=== PATIENT | male | born 1975 | race Caucasian/White ===

== ENCOUNTER 2018-07-22 00:37 | Inpatient (IN) | END 2018-07-22 19:30 | disposition home or self-care (01) | DRG 282 ==

== ENCOUNTER 2018-09-24 19:50 | Emergency (ER) | payer MEDICAID ==
[~2018-09-24] VITALS: Wt 80.6 kg
[~2018-09-24 19:50] MED LIST: METO-448 PO
[2018-09-24] MEDS ORDERED: SOD CHLORIDE 0.9% 1,000 ML IV STA (20:30)
[2018-09-24] MEDS ORDERED: ADENOSINE 6 MG INJ IV ONE (20:30)
[2018-09-24] MEDS ORDERED: MAGNESIUM SULFATE 1 GM/D5W 100 ML IVPB ONE (20:30)
[2018-09-24] MEDS ORDERED: DILTIAZEM-D5W 125MG/125ML DRIP 125 ML IV STA (20:38)
[2018-09-24] MEDS ORDERED: DILTIAZEM 25 MG INJ IV STA (20:38)
[2018-09-24] MEDS ORDERED: DILTIAZEM 25 MG INJ ONE (20:39)
--- NOTE | 2018-09-24 21:45 | ERD ---
ER Documentation Chief Complaint Chief Complaint PALPITATIONS HPI 43-year-old male. History of SVT with hospitalization in July for similar. The patient presents with approximately 1 hour of palpitations. He describes some mild discomfort to his neck bilaterally without any chest pressure or discomfort. He states compliance with his medications. No pleuritic pain no fevers chills or cough. He denies any lightheadedness or fainting episodes. During the patient's encounter translation services were utilized Language: [Yakut] Source: [in person] ROS All systems reviewed and are negative except as per history of present illness. Medications Home Meds Active Scripts Metoprolol Tartrate* (Lopressor*) 25 Mg Tab, 25 MG PO BID, #60 TAB 1 Refill Prov:WILBER CALDWELLMague 07/22/18 Allergies Allergies: Coded Allergies: No Known Allergy (Unverified , 07/21/18) PMhx/Soc History of Surgery: Yes (cardiac intervention, possible oblation) Hx Neurological Disorder: No Hx Respiratory Disorders: No Hx Cardiac Disorders: Yes (htn) Hx Psychiatric Problems: No Hx Miscellaneous Medical Probl: No Hx Alcohol Use: Yes (moderated) Hx Substance Use: No Hx Tobacco Use: Yes Smoking Status: Current every day smoker Physical Exam Vitals Vital Signs Date Temp Pulse Resp B/P (MAP) Pulse Ox O2 O2 Flow FiO2 Time Delivery Rate 09/24/18 Nasal 2 20:55 Cannula 09/24/18 95 6.0 20:42 09/24/18 97.9 224 18 123/85 96 19:54 (98) Physical Exam General: Well developed, well nourished, no acute distress Head: Normocephalic, atraumatic. Eyes: Pupils equally reactive, EOM intact ENT: Moist mucous membranes Neck: Supple, no lymphadenopathy Respiratory: Lungs clear bilaterally, no distress Cardiovascular: Tachycardia, no murmurs, rubs, or gallops Abdominal: Soft, non-tender, non-distended, no peritoneal signs : Deferred MSK: No edema, no unilateral swelling, 5/5 strength Neurologic: Alert and oriented, moving all extremities, normal speech, no focal weakness, no cerebellar signs Skin: No rash Psych: Normal mood Result Diagram: 09/24/18203909/24/182039 Results 24 hrs Laboratory Tests Test 09/24/18 20:40 White Blood Count 11.8 10^3/ul Red Blood Count 5.44 10^6/ul Hemoglobin 17.2 g/dl Hematocrit 51.5 % Mean Corpuscular Volume 94.7 fl Mean Corpuscular Hemoglobin 31.6 pg Mean Corpuscular Hemoglobin Concent 33.4 g/dl Red Cell Distribution Width 12.1 % Platelet Count 226 10^3/UL Mean Platelet Volume 9.6 fl Immature Granulocytes % 0.300 % Neutrophils % 69.1 % Lymphocytes % 23.4 % Monocytes % 5.9 % Eosinophils % 0.9 % Basophils % 0.4 % Nucleated Red Blood Cells % 0.0 /100WBC Immature Granulocytes # 0.040 10^3/ul Neutrophils # 8.2 10^3/ul Lymphocytes # 2.8 10^3/ul Monocytes # 0.7 10^3/ul Eosinophils # 0.1 10^3/ul Basophils # 0.1 10^3/ul Nucleated Red Blood Cells # 0.0 10^3/ul Sodium Level 136 mmol/L Potassium Level 4.2 mmol/L Chloride Level 100 mmol/L Carbon Dioxide Level 24 mmol/L Anion Gap 12 Blood Urea Nitrogen 13 mg/dl Creatinine 1.08 mg/dl Est Glomerular Filtrat Rate mL/min > 60 mL/min Glucose Level 155 mg/dl Calcium Level 10.1 mg/dl Magnesium Level 1.9 mg/dl Troponin I 0.071 ng/ml Current Medications Medications Dose Sig/Rodri Start Time Status Last (Trade) Ordered Route PRN Stop Time Admin Dose Reason Admin Sodium 1,000 ml @ Q1H STAT 09/24/18 DC 09/24/18 Chloride 1,000 mls/hr IV 20:30 09/24/18 20:46 21:29 Adenosine 6 mg ONCE ONCE 09/24/18 DC 09/24/18 (Adenosine) IV 20:30 09/24/18 20:46 20:32 Magnesium 100 ml @ ONCE ONCE 09/24/18 DC 09/24/18 Sulfate/ 100 mls/hr IVPB 20:30 09/24/18 20:47 Dextrose 21:29 Diltiazem 20 mg ONCE STAT 09/24/18 DC 09/24/18 HCl IV 20:38 09/24/18 20:47 (Cardizem Iv) 20:39 Diltiazem 125 ml @ 5 ONCE STAT 09/24/18 09/24/18 HCl mls/hr IV 20:38 21:03 09/25/18 21:37 Diltiazem 25 mg STK-MED 09/24/18 DC HCl ONCE .ROUTE 20:39 09/24/18 (Cardizem Iv) 20:40 Procedures/MDM EKG, MONITORS, & DIAGNOSTIC IMAGING: EKG: I reviewed and interpreted a 12-lead EKG. Rhythm: Narrow complex tachycardia in the [address] Changes: No contiguous ST segment elevations T waves: No contiguous T wave inversions Impression: Supraventricular tachycardia EKG: I reviewed and interpreted a 12-lead EKG. Rhythm: Normal sinus rhythm ST Changes: No contiguous ST segment elevations T waves: No contiguous T wave inversions Impression: [No evidence of acute cardiac ischemia] Chest x-ray: I reviewed and interpreted a 1 view of the chest Mediastinum: No enlargement Cardiac silhouette: No cardiomegaly Airspace: Clear lung kenyon bilaterally without evidence of pneumothorax Bones: No evidence of fracture LAB INTERPRETATION: * Normal electrolytes, negative troponin MEDICAL DECISION MAKING: The patient presents with signs and symptoms consistent with supraventricular tachycardia. The patient has a history of such. Hospitalization in July was unremarkable. The patient does use alcohol. Patient did have a troponin bump at that time. He has been compliant with his medications. This is likely an exacerbation of his supraventricular tachycardia. ER COURSE: * The patient was given 6 mg of adenosine without response. He was given 12 mg of adenosine without response * The patient was then given IV fluids, magnesium and Cardizem bolus and drip. The patient then had spontaneous cardioversion. The patient now has a normal sinus rhythm * At this time the patient is hemodynamic is stable, resting without symptoms. He has no evidence of endorgan dysfunction. Given the patient's recent cardiac workup, complete resolution of SVT with normal sinus rhythm and no evidence of endorgan dysfunction outpatient follow-up is appropriate. The patient can be safely discharged home with primary care and cardiology follow- up as planned. * Return precautions were discussed and understood CONSULTATION: [None] DISPOSITION PLAN: We discussed follow up with the patient's primary care doctor within 24 to 48 hours as needed. We also discussed return to the emergency room for worsening symptoms or worsening condition. Outpatient referral: Cardiology Critical Care Note: Total time: 30 minutes Indication/Organ System Threat: SVT I spent the above amount of critical care time with the patient, not including billable procedures. This included chart review, consultations, repeat bedside evaluations, and titration of appropriate medications to prevent cardiopulmonary or respiratory collapse. Departure Diagnosis: Primary Impression: SVT (supraventricular tachycardia) Condition: Stable Patient Instructions: SVT Ref[facility] Usted se mathews hecho un examen mdico de control que le indica que no est en yfn condicin que requiera tratamiento urgente en el Departamento de Emergencia. Un estudio ms profundo y el tratamiento de lin condicin pueden esperar sin ningn riesgo hasta que usted sea atendida/o en el consultorio de lin mdico o yfn clnica. Es responsabilidad suya arreglar yfn dyan para el seguimiento del misty. MANEJO DE CONDICIONES NO URGENTES EN EL FUTURO 1) Si usted tiene un mdico de atencin primaria: Usted debera llamar a lin mdico de atencin primaria antes de venir al departamento de emergencia. Despus de las horas de consultorio, lin doctor o lin asociado/a est disponible por telfono. El mdico o enfermero de gael en el servicio telefnico puede asesorarle por elizabeth medio para atender el problema, o misty contrario se puede programar yfn dyan. 2) Si usted no tiene un mdico de atencin primaria: Llame al mdico o clnica de referencia que aparece abajo brenda las horas de consultorio para hacer yfn dyan para que le vean. CLINICAS: [facility] [phone] [facility] [phone] [facility] [phone] [address] [facility] [phone] [facility] [phone] [address] [facility]. [phone] [address] [facility]. [facility] () Usritu se mathews hecho un examen mdico de control que le indica que no est en yfn condicin que requiera tratamiento urgente en el Departamento de Emergencia. Un estudio ms profundo y el tratamiento de lin condicin pueden esperar sin ningn riesgo hasta que usted sea atendida/o en el consultorio de lin mdico o yfn clnica. Es responsabilidad suya arreglar yfn dyan para el seguimiento del misty. MANEJO DE CONDICIONES NO URGENTES EN EL FUTURO 1) Si usted tiene un mdico de atencin primaria: Usted debera llamar a lin mdico de atencin primaria antes de venir al departamento de emergencia. Despus de las horas de consultorio, lin doctor o lin asociado/a est disponible por telfono. El mdico o enfermero de gael en el servicio telefnico puede asesorarle por elizabeth medio para atender el problema, o misty contrario se puede programar yfn dyan. 2) Si usted no tiene un mdico de atencin primaria: Llame al mdico o condado institucions de referencia que aparece abajo brenda las horas de consultorio para hacer yfn dyan para que le vean. SI USTED NO PUEDE PAGAR PARA SARAHI UN MEDICO puede ir a: [facility] [id number] [place] [address] [facility] [address] [place] [address] [facility] [address] [place] [address] PARA MANJU [facility] [address] [place] [address] Additional Instructions: Please follow-up with your paperhanger apprentice as soon as possible and return for any worsening symptoms or recurrence of supraventricular tachycardia. Take your medication as prescribed. Llame al doctor MAANA y jan yfn DYAN PARA DENTRO DE 2-3 G[place].Dgale a la secretaria que nosotros le instruimos hacer esta dyan.Avise o llame si lin condicin se empeora antes de la dyan. Regresa aqui si peor o no mejor. SHAMA NEGRON MD Sep 24, 2018 21:45
[2018-09-24 22:39] VITALS: BP 110/81; PULSE 81; RESP 18
== END 2018-09-24 22:40 | disposition home or self-care (01) ==
LOC: E/R 19:50
DX: I47.1 Supraventricular tachycardia (principal); I10 Essential (primary) hypertension; F17.210 Nicotine dependence, cigarettes, uncomplicated
CPT/HCPCS: 36415; 71045; 80048; 83735; 84484; 85025; 93005; 96365; 96368; J3475; J7030; Z7502; Z7610